=== PATIENT | male | born 1985 | race American Indian/Alaskan Native ===

== ENCOUNTER 2021-03-29 21:48 | Emergency (ER) | payer SELFPAY ==
[2021-03-29] MEDS ORDERED: ONDANSETRON 4 MG/2 ML INJ IV ONE (22:04)
[2021-03-29] MEDS ORDERED: MORPHINE 4 MG/1 ML INJ IV ONE (22:04)
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
[2021-03-29] MEDS ORDERED: IBUPROFEN 800 MG TAB PO ONE (23:41)
[2021-03-29] MEDS ORDERED: oxyCODONE /ACETAMINOPHEN 5-325MG TAB PO ONE (23:41)
[2021-03-30] MEDS ORDERED: MORPHINE 4 MG/1 ML INJ IV ONE (00:24)
[2021-03-30 01:51] VITALS: BP 147/89
== END 2021-03-30 01:35 | disposition home or self-care (01) ==
LOC: ED 21:48
DX: S82.451A Displaced comminuted fracture of shaft of right fibula, initial encounter for closed fracture (principal); S63.501A Unspecified sprain of right wrist, initial encounter; S50.11XA Contusion of right forearm, initial encounter; S20.219A Contusion of unspecified front wall of thorax, initial encounter; S09.90XA Unspecified injury of head, initial encounter; I10 Essential (primary) hypertension; E66.9 Obesity, unspecified; F12.90 Cannabis use, unspecified, uncomplicated; Z68.37 Body mass index [BMI] 37.0-37.9, adult; Z79.899 Other long term (current) drug therapy; V86.99XA Unspecified occupant of other special all-terrain or other off-road motor vehicle injured in nontraffic accident, initial encounter; Y92.410 Unspecified street and highway as the place of occurrence of the external cause; Y93.89 Activity, other specified; Y99.8 Other external cause status
CPT/HCPCS: 29515; 70450; 71250; 72125; 73060; 73090; 73110; 73130; 73610; 73630; 96374; 96375; 96376; 99284; J2270; J2405